=== PATIENT | male | born 1985 | race Caucasian/White ===

== ENCOUNTER 2017-07-08 15:25 | Emergency (ER) | payer OTHER ==
[~2017-07-08] VITALS: Ht 182.9 cm; Wt 129.3 kg
--- NOTE | 2017-07-08 16:44 | ED Lower Extremity ---
General Chief Complaint: Lower Extremity Stated Complaint: INJ R KNEE Source: patient Exam Limitations: no limitations History of Present Illness Date Seen by Provider: Jul 08, 2017 Time Seen by Provider: 16:41 Initial Comments To ER with complaints of right knee pain. This began just prior to arrival, when he was playing basketball. He went to make a rebound and landed on his right leg in his right knee buckled. He is able to bear weight but with some pain. Is able to flex his knee but not fully extend his knee. Onset: just prior to arrival Severity: moderate Pain/Injury Location: right knee Method of Injury: sports injury Modifying Factors: Worse With Movement Allergies and Home Medications Allergies Coded Allergies: No Known Drug Allergies (Unverified , 07/08/17) Patient Home Medication List Home Medication List Reviewed: Yes Constitutional: see HPI EENTM: see HPI Respiratory: no symptoms reported Cardiovascular: no symptoms reported Genitourinary: no symptoms reported Musculoskeletal: no symptoms reported Skin: no symptoms reported Psychiatric/Neurological: No Symptoms Reported Past Jnnaiko-Ufcytu-Bewjux Hx Patient Social History Alcohol Use: Denies Use Recreational Drug Use: Yes Drug of Choice: MARIJUANA Smoking Status: Never a Smoker 2nd Hand Smoke Exposure: No Recent Hopitalizations: No Seasonal Allergies Seasonal Allergies: No Past Medical History Surgeries: No Physical Exam Vital Signs Vital Signs - First Documented 07/08/17 16:35 Temp 97.3 Pulse 94 Resp 16 B/P (MAP) 148/78 (101) Pulse Ox 98 O2 Delivery Room Air Capillary Refill : General Appearance: WD/WN, no apparent distress HEENT: PERRL/EOMI, normal ENT inspection Neck: non-tender, full range of motion Respiratory: no respiratory distress, no accessory muscle use Gastrointestinal: normal bowel sounds, non tender, soft Hips: bilateral hip non-tender, bilateral hip normal inspection, bilateral hip normal range of motion Legs: bilateral leg non-tender, bilateral leg normal inspection, bilateral leg normal range of motion Knees: bilateral knee non-tender, bilateral knee normal inspection, bilateral knee normal range of motion Ankles: right ankle pain, right ankle soft tissue tenderness, right ankle other (No deformity or swelling) Feet: bilateral foot non-tender, bilateral foot normal inspection, bilateral foot normal range of motion Neurologic/Psychiatric: alert, normal mood/affect, oriented x 3 Skin: normal color, warm/dry Progress/Results/Core Measures My Orders Orders - EVERETTE NORIEGA APRN Knee, Right, 3 Views (07/08/17 16:40) Rx-Tramadol Hcl (Rx-Ultram) (07/08/17 17:44) Crutches (07/08/17 17:44) Vital Signs/I&O 07/08/17 16:35 Temp 97.3 Pulse 94 Resp 16 B/P (MAP) 148/78 (101) Pulse Ox 98 O2 Delivery Room Air Departure Impression Primary Impression: Sprain of knee Disposition: HOME, SELF-CARE Condition: Stable Departure-Patient Inst. Decision time for Depature: 16:44 Referrals: NO,LOCAL PHYSICIAN (PCP/Family) Primary Care Physician Patient Instructions: Knee Sprain (DC) Add. Discharge Instructions: 1. Return to ER for any concerns 2. Follow-up with your doctor next week if the pain persists, the next step might be an MRI to evaluate the ligaments in the knee. The All discharge instructions reviewed with patient and/or family. Voiced understanding. EVERETTE NORIEGA APRN Jul 08, 2017 16:44
--- NOTE | 2017-07-08 17:25 | Diagnostic Imaging Report ---
INDICATION: Right knee pain. EXAMINATION: Three views of right knee were obtained. FINDINGS: No fracture, dislocation or other acute abnormalities. IMPRESSION: Negative right knee. Dictated by: Dictated on workstation # [id number]
[2017-07-08] MEDS ORDERED: RX-TRAMADOL 50 MG (ULTRAM) TAB PPK#4 PO STA (17:44)
[2017-07-08 17:54] VITALS: BP 148/78
== END 2017-07-08 17:54 | disposition home or self-care (01) ==
LOC: ER 15:29
DX: S83.91XA Sprain of unspecified site of right knee, initial encounter (principal); F12.90 Cannabis use, unspecified, uncomplicated; W18.30XA Fall on same level, unspecified, initial encounter; Y93.67 Activity, basketball
CPT/HCPCS: 73562